=== PATIENT | male | born 1960 ===

== ENCOUNTER 2017-10-11 08:41 | Observation (INO) | payer BC ==
[2017-10-11] MEDS ORDERED: DEXAMETHASONE 10 MG/ML VIAL IVP ONE (08:49)
[2017-10-11] MEDS ORDERED: ceFAZolin 2 GM/DEXTROSE 100 ML IV ONE (08:49)
[2017-10-11] MEDS ORDERED: LIDOCAINE 1% 2 ML INJ ID PRN (08:51)
[2017-10-11] MEDS ORDERED: LR 1,000 ML IV ONE (08:51)
[2017-10-11] MEDS ORDERED: BUPIVACAINE 0.25% 30 ML SDV ONE (09:05)
[2017-10-11] MEDS ORDERED: EPINEPHrine 1 MG/ML INJ ONE (09:05)
[2017-10-11] MEDS ORDERED: LIDOCAINE 1% 300 MG/30 ML SDV ONE (09:05)
[2017-10-11] MEDS ORDERED: BACITRACIN ZINC 14.2 GM OINTTUBE TP ONE (09:05)
[2017-10-11] MEDS ORDERED: LIDO/EPI 1% **for epidural** 30 ML SDV ONE (09:06)
--- NOTE | 2017-10-11 09:10 | CPEKG ---
Heart Rate: 72 RR Interval: 833 P-R Interval: 156 QRSD Interval: 104 QT Interval: 396 QTC Interval: 434 P Griffith: 30 QRS Griffith: 49 T Wave Griffith: 112 EKG Severity - ABNORMAL ECG - EKG Impression: SINUS RHYTHM EKG Impression: ABNORMAL T, CONSIDER ISCHEMIA, LATERAL LEADS EKG Impression: MINIMAL ST ELEVATION, ANTERIOR LEADS Electronically Signed By: Lenin Matt 11-Oct-2017 16:00:37
[2017-10-11 09:38] LABS: PLATELET COUNT 209 10^3/uL (150-400)
--- NOTE | 2017-10-11 09:43 | PDANEPAE ---
ANE Past Medical History - Cardiovascular History Hx Hypertension: No Hx Arrhythmias: No Hx Chest Pain: No Hx Coronary Artery / Peripheral Vascular Disease: Yes Hx CHF / Valvular Disease: No Hx Palpitations: No - Pulmonary History Hx COPD: No Hx Asthma/Reactive Airway Disease: No Hx Recent Upper Respiratory Infection: No Hx Oxygen in Use at Home: No Hx Sleep Apnea: No ANE Review of Systems Review of Systems: ANE Patient History - Allergies Allergies/Adverse Reactions: No Known Allergies Allergy (Verified 10/11/17 09:08) - Home Medications Home Medications: Aspirin 81mg (*) 10/11/17 [Last Taken 10/08/17] Crestor 20mg (*) 10/11/17 [Last Taken 10/10/17] Fish Oil Lejunior-3 Softgel 10/11/17 [Last Taken 10/10/17] - NPO status NPO Since - Liquids (Date): 10/11/17 NPO Since - Liquids (Time): 01:00 NPO Since - Solids (Date): 10/11/17 NPO Since - Solids (Time): 01:00 ANE Labs/Vital Signs - Labs Result Diagrams: 10/11/17 09:25 - Vital Signs Blood Pressure: 148/102 Heart Rate: 67 Respiratory Rate: 15 O2 Sat (%): 94 Height: 175.26 cm Weight: 77.564 kg ANE Physical Exam - Airway Neck exam: FROM Mallampati Score: Class 2 Mouth exam: normal dental/mouth exam - Pulmonary Pulmonary: no respiratory distress - Cardiovascular Cardiovascular: regular rate and rhythym - ASA Status ASA Status: II ANE Anesthesia Plan Anesthesia Plan: general endotracheal anesthesia
--- NOTE | 2017-10-11 10:01 | PDHPUP ---
History & Physical Update H&P update statement: This history and physical update is based on an assessment of the patient which was completed after admission or registration (within 24 hours), but prior to the surgery/procedure. H&P update: H&P reviewed & patient examined, no change in patient's condition since H&P completed
[2017-10-11] MEDS ORDERED: fentaNYL 250 MCG/5 ML INJ ONE (10:29)
[2017-10-11] MEDS ORDERED: PROPOFOL/EMULSION 500 MG/50 ML BOTTLE IV ONE (10:29)
[2017-10-11] MEDS ORDERED: REMIFENTANIL HCL 1 MG VIAL ONE (10:56)
[2017-10-11] MEDS ORDERED: DEXAMETHASONE 4 MG/ML VIAL ONE (11:11)
[2017-10-11] MEDS ORDERED: ONDANSETRON 4 MG/2 ML VIAL ONE (11:11)
[2017-10-11] MEDS ORDERED: fentaNYL 100 MCG/2 ML INJ IVP PRN (13:38)
[2017-10-11] MEDS ORDERED: NALOXONE HCL 0.4 MG/ML INJ IVP PRN (13:38)
[2017-10-11] MEDS ORDERED: LR 500 ML IV PRN (13:38)
[2017-10-11] MEDS ORDERED: PROMETHAZINE HCL 25 MG/ML INJ IVP PRN (13:38)
[2017-10-11] MEDS: LABETALOL HCL 5 MG/ML 20 ML MDV IVP PRN ×4 (13:38→14:04)
--- NOTE | 2017-10-11 13:39 | POSTANESTH ---
Post Anesthetic Evaluation Cardiovascular Status: Normal, Stable Respiratory Status: Normal, Stable Level of Consciousness/Mental Status: Can Participate in Eval Pain Control: Adequate, Prn Tx Ordered Nausea/Vomiting Control: Adequate, Prn Tx Ordered Complications Possibly Related to Anesthesia: None Noted
[2017-10-11] MEDS ORDERED: OXYCODONE/APAP 5/325 TAB PO PRN (13:43)
[2017-10-11] MEDS ORDERED: ONDANSETRON 4 MG/2 ML VIAL IVP PRN (14:22)
[2017-10-11] MEDS ORDERED: D5W 1/2 NS 1,000 ML IV SCH ×2 (14:30→17:45)
--- NOTE | 2017-10-11 14:32 | POSTOPPROG ---
Post Op Note Date of Operation: 10/11/17 Surgeon: Earl Rodriguez [employer] Supervisor: Emily Preston Anesthesiologist: Samuel Mukherjee Pre-op Diagnosis: Left neck Mass Post-op Diagnosis: Left neck metastatic squamous cell carcinoma Indication: Left neck mass Procedure: Left Neck modified ND, DL with biopsies, Cervical esophagoscopy Findings: 4x3.5x2 cm left lev 2B mass, firm area left base of tongue Inf/Abcess present in the surg proc area at time of surgery?: No Depth: Organ Space EBL: 50-100 Complications: none Drains: Joe Sanders Specimen(s): 1. left neck mass 2. Left neck level 2b and 3 tissue 3. Left base of tongue biopsies 4. Left tonsil fossa biopsies
--- NOTE | 2017-10-11 16:45 | GOP ---
[f rep st] OPERATIVE REPORT DATE OF OPERATION: 10/11/2017 SURGEON: Earl Rodriguez MD PATTERN KEEPER: Fermin Lopez MD, and Emily Parada PA-C. ANESTHESIA: General endotracheal anesthesia. PREOPERATIVE DIAGNOSIS: Left neck mass. POSTOPERATIVE DIAGNOSIS: Left neck metastatic squamous cell carcinoma. PROCEDURE PERFORMED: 1. Left modified neck dissection. 2. Direct laryngoscopy with biopsies. 3. Cervical esophagoscopy. FINDINGS: Frozen section evaluation of the left neck mass was positive for squamous cell carcinoma. The mass itself measured 4 x 3.5 x 2 cm in size. There was a single likely positive node directly a djacent to it. No other adenopathy was noted. During the direct laryngoscopy, there was a slightly firm area of the left base of tongue that was noted on palpation and this was biopsied. SPECIMENS: 1. Left level 2B neck mass. 2. Left neck lymphatic and soft tissue neck dissection of levels 2B and 3. 3. Left base of tongue biopsies. 1. Left tonsil fossa biopsies. 4. ESTIMATED BLOOD LOSS: Less than 100 cc. INDICATIONS: The patient is a 56-year-old man with a left neck mass. No other symptoms were noted. A needle biopsy showed some atypical cells and necrosis. He presents for surgery for definitive nyla gnosis. DESCRIPTION OF PROCEDURE: Patient was taken the OR, positively identified, placed on monitors and ge neral anesthesia was induced. The table was then turned and he was prepped and draped in normal ster ile fashion. Incision was marked overlying the left anterior neck skin crease and infiltrated with 4 cc of 0.25% Marcaine with 1:100,000 epinephrine. The patient was then prepped and draped. The skin was incised in normal fashion, dissecting down through the platysma. Superior and inferior subplatysmal flaps were then raised and secured. Dissection was carried along the anterior border of sternocleidomastoid muscle. A superior incision was made below the tail of parotid gland and along the inferior border of the submandibular gland. Dissection continued around the mass itself, shellin g it out from the surrounding tissue. The internal jugular vein and carotid artery were identified a nd preserved. The hypoglossal nerve was identified and preserved. The accessory nerve was identifie d and preserved. Vessels were tied off and cauterized as needed to maintain hemostasis, and once the mass is excised along with the adjacent smaller pale-appearing lymph node, attention was turned to t he rest of the neck. The frozen section came back positive. The decision was made to dissect the inferior aspect of level 2B and level 3. Dissection was swept along the anterior border of the sternocleidomastoid muscle an d jugular vein extending down to the omohyoid, which was retracted inferiorly. Some of the soft tiss ue below this was swept up and the lymphatic tissue was transected following the angle of the omohyoi d muscle and then sweeping this off the neck anteriorly. This was sent for pathologic evaluation. The wound was irrigated with sterile saline solution. Oozing vessels were tied off or cauterized as needed. A 10-Arabic drain was placed through a separate stab incision. The wound was then closed wi th interrupted 3-0 Vicryl, 4-0 Monocryl, and 5-0 Prolene. A sterile dressing was placed following cl osure. Prior to closure, a 10-Arabic suction drain had been placed. Attention was now turned to the direct laryngoscopy. A protective guard was placed over the upper in cisors. I did note that there was some cracking of the left upper incisor, tooth #26. The laryngosc ope was then used to examine the oral cavity and oropharynx, no abnormalities were noted of the tonsi llar fossa. Preoperatively, I thought there was a little bit of fullness in the left posterior tonsi llar pillar, but this is not appreciated today. Biopsies were taken of the area anyhow. I then exam ined the hypopharynx and larynx, both visually and on palpation. There was some firmness to the left base of tongue and multiple biopsies were taken in this area. The cervical esophagoscope was then passed down beyond the upper esophageal sphincter, passed approxi mately 10 cm beyond the upper esophageal sphincter and slowly removed, and no abnormalities were seen . At this point, the dental guard was removed. The patient was turned back over to Anesthesia. The Ancef was discontinued. He taken to postop care unit in good condition having tolerated the procedu re well. COMPLICATIONS: None. Copy requested to: Naida Simeon MD /[id number]/MODL
[2017-10-11] MEDS ORDERED: ceFAZolin 2 GM in NS 100 ML IV ONE (18:45)
[2017-10-12 08:43] VITALS: BP 138/91
--- NOTE | 2017-10-12 12:41 | ASDISCHSUM ---
Discharge Information Plan Status:Home with No Needs Medically Cleared to Leave:10/12/2017 Discharge Date:10/12/2017 CM D/C Disposition:Home, Routine, Self-Care ADT D/C Disposition:Home, Routine, Self-Care Projected Discharge Date:10/12/2017 Transportation at D/C:Family Discharge Delay Reason: Follow-Up Date:10/12/2017 Discharge Slot: Final Diagnosis: Placement Information Patient Contact Information Contact Name:YASMANY Relationship: Address: Work Phone: City: [facility] Phone: State/[employer] Code: Email: Financial Information Financial Class:HMO and PPO Plans Primary Plan Desc:[employer] Primary Plan Number:[id number] Secondary Plan Desc: Secondary Plan Number: Assessment Information LACE LACE Length of stay for Answers: Less than 1 day current admission Acuity / Level of Answers: No Care: Did the patient have an inpatient admission? Comorbidities - select Answers: Any tumor (including all that apply lymphoma or leukemia) Other Notes: cardiac stents # of Emergency department Answers: 0 visits in the last 6 months Score: 3 Date Signed: 10/12/2017 12:39 PM Electronically Signed By:ALEXUS Callaway Intervention Information
--- NOTE | 2017-10-12 12:44 | ASMTCMCOM ---
CM Note CM Note Notes: Pt is s/p a laryngoscopy with biopsies for met squamous cell CA. He lives with his in [place]. ENT is following. CM will follow for any d/c needs. Date Signed: 10/12/2017 12:43 PM Electronically Signed By:ALEXUS Callaway
== END 2017-10-12 12:59 | disposition home or self-care (01) ==
LOC: F3E 08:41
PROVIDERS: ADMIT Otolaryngology; ATTEND Otolaryngology
PROC: 0JB50ZX Excision of Left Neck Subcutaneous Tissue and Fascia, Open Approach, Diagnostic (ICD-10-PCS; principal; 2017-10-11 09:45)
PROC: 07B20ZX Excision of Left Neck Lymphatic, Open Approach, Diagnostic (ICD-10-PCS; principal; 2017-10-11 09:45)
PROC: 0DJ08ZZ Inspection of Upper Intestinal Tract, Via Natural or Artificial Opening Endoscopic (ICD-10-PCS; principal; 2017-10-11 09:45)
PROC: 0CBPXZX Excision of Tonsils, External Approach, Diagnostic (ICD-10-PCS; principal; 2017-10-11 09:45)
PROC: 0CB7XZX Excision of Tongue, External Approach, Diagnostic (ICD-10-PCS; principal; 2017-10-11 09:45)
DX: C44.42 Squamous cell carcinoma of skin of scalp and neck (principal); I25.10 Atherosclerotic heart disease of native coronary artery without angina pectoris; Z95.5 Presence of coronary angioplasty implant and graft
CPT/HCPCS: 21550; 31535; 43191; 93005; G0378; J0171; J0690; J1100; J2405; J2704; J3010

== ENCOUNTER → 2017-11-05 | Outpatient (CLI) | payer BC | LOC: FIMAGING 15:35 | PROVIDERS: ATTEND Internal Medicine Hematology & Oncology | DX: Z01.818 Encounter for other preprocedural examination (principal); C10.9 Malignant neoplasm of oropharynx, unspecified ==

== ENCOUNTER 2017-11-16 07:24 | Observation (INO) | payer BC ==
[2017-11-16] MEDS ORDERED: FLUMAZENIL 0.5 MG/5 ML MDV IVP PRN (09:16)
[2017-11-16] MEDS ORDERED: ceFAZolin 2 GM/DEXTROSE 100 ML IV ONE (09:16)
[2017-11-16] MEDS ORDERED: MEPERIDINE 25 MG/ML SYR IVP PRN (09:16)
[2017-11-16] MEDS ORDERED: ALTEPLASE 2 MG VIAL IVP PRN (09:16)
[2017-11-16] MEDS ORDERED: fentaNYL 100 MCG/2 ML INJ IVP PRN (09:16)
[2017-11-16] MEDS ORDERED: GLUCAGON HCL 1 MG VIAL IVP PRN (09:16)
[2017-11-16] MEDS ORDERED: PROTAMINE SULFATE 50 MG/5 ML VIAL IVP PRN (09:16)
[2017-11-16] MEDS ORDERED: NALOXONE HCL 0.4 MG/ML INJ IVP PRN (09:16)
[2017-11-16] MEDS ORDERED: HEPARIN 10,000 UNIT/10 ML MDV (1,000 UNIT/ML) IVP PRN (09:16)
[2017-11-16] MEDS ORDERED: MIDAZOLAM 2 MG/2 ML VIAL IVP PRN (09:16)
[2017-11-16] MEDS ORDERED: NS 1,000 ML IV SCH (09:30)
[2017-11-16] MEDS ORDERED: MIDAZOLAM 2 MG/2 ML VIAL ONE ×2 (09:35)
[2017-11-16] MEDS ORDERED: fentaNYL 100 MCG/2 ML INJ ONE ×2 (09:35→17:30)
[2017-11-16] MEDS ORDERED: NALOXONE HCL 0.4 MG/ML INJ ONE (09:35)
[2017-11-16] MEDS ORDERED: CEFAZOLIN 2 GM/DEXTROSE/100 ML BAG IV ONE (09:35)
[2017-11-16] MEDS ORDERED: FLUMAZENIL 0.5 MG/5 ML MDV IVP ONE (09:35)
--- NOTE | 2017-11-16 09:47 | PDGENHP ---
History and Physical - History of Present Illness History Information - Allergies/Home Medication List Allergies/Adverse Reactions: No Known Allergies Allergy (Verified 10/11/17 09:08) Home Medications: Rosuvastatin Calcium [Crestor 20mg (*)] 20 mg PO DAILY 10/11/17 [Last Taken ] Aspirin 81mg (*) 162 mg PO DAILY 11/15/17 [Last Taken Unknown] Fish Oil 1,000 mg Softgel 3,000 mg PO DAILY 11/15/17 [Last Taken Unknown] - Social History Smoking Status: Never smoked Review of Systems Review of Systems: Physical Exam Physical Exam: Lab Data & Imaging Review 11/16/17 08:45 Hct 46.1 % (40.0-51.0) 11/16/17 08:45 Plt Count 201 10^3/uL (150-400) 11/16/17 08:45 PT REJ 11/16/17 08:45 INR TNP 11/16/17 08:45 APTT TNP 11/16/17 08:45
--- NOTE | 2017-11-16 09:56 | PDRADPRE ---
Radiology History & Physical Indication for procedure: other (Radiation induced dysphagia) Home medications: Rosuvastatin Calcium [Crestor 20mg (*)] 20 mg PO DAILY 10/11/17 [Last Taken ] Aspirin 81mg (*) 162 mg PO DAILY 11/15/17 [Last Taken Unknown] Fish Oil 1,000 mg Softgel 3,000 mg PO DAILY 11/15/17 [Last Taken Unknown] Allergies/Adverse Reactions: No Known Allergies Allergy (Verified 10/11/17 09:08) Mental status: A&Ox3 Heart exam: regular rate and rhythm Lungs exam: clear to auscultation Mallampati Score: Class 2
[2017-11-16 09:57] LABS: INR 0.96 (0.83-1.16)
--- NOTE | 2017-11-16 09:57 | PDPROPOC ---
Sedation Plan of Care Sedation Plan of Care: vital signs stable, mental status noted, patient educated of risks, benefits, alternatives, patient can tolerate sedation ASA Classification: ASA 1 Planned drugs: fentanyl, midazolam Mallampati Score: Class 2 Mallampati Reference Image: Patient passed 3-3-2 rule?: Yes
[2017-11-16] MEDS ORDERED: LIDOCAINE 2% JELLY 20 ML (UROJECT) ONE (10:39)
[2017-11-16] MEDS ORDERED: GLUCAGON HCL 1 MG VIAL ONE (10:44)
[2017-11-16] MEDS ORDERED: ONDANSETRON 4 MG/2 ML VIAL IVP PRN ×2 (11:20→18:15)
--- NOTE | 2017-11-16 11:20 | PDRADPN ---
Radiology Procedure Note Date of Procedure: 11/16/17 Radiologist: Nima Nunez Anesthesia: IV Sedation Pre-op Diagnosis: Dysphagia Post-op Diagnosis: Dysphagia Indication: Dysphagia Procedure: Gastrostomy tube placement Finding(s): 20 Fr G tube placed into stomach without complication Inf/Abcess present in the surg proc area at time of surgery?: No
[2017-11-16] MEDS ORDERED: GLUCAGON HCL IVP ONE (11:30)
[2017-11-16] MEDS ORDERED: GLUCAGON HCL 1 MG VIAL IVP ONE (11:45)
--- NOTE | 2017-11-16 13:11 | CPEKG ---
Heart Rate: 55 RR Interval: 1091 P-R Interval: 160 QRSD Interval: 102 QT Interval: 420 QTC Interval: 402 P Tig[place]: 31 QRS Tig[place]: 57 T Wave [place]: 42 EKG Severity - ABNORMAL ECG - EKG Impression: SINUS RHYTHM EKG Impression: ABNORMAL T, CONSIDER ISCHEMIA, LATERAL LEADS Electronically Signed By: Benoit Magaña 17-Nov-2017 11:24:31
[2017-11-16] MEDS ORDERED: IOPAMIDOL (ISOVUE-300) 100 ML BTL ONE (13:17)
[2017-11-16] MEDS ORDERED: LIDOCAINE 1% 300 MG/30 ML SDV ONE (13:17)
[2017-11-16 13:49] LABS: PLATELET COUNT 203 10^3/uL (150-400)
[2017-11-16 14:05] LABS: CREATINE KINASE 28 IU/L (0-224)
[2017-11-16] MEDS ORDERED: D5W 1/2 NS 1,000 ML IV ONE (15:00)
[2017-11-16] MEDS: ACETAMINOPHEN 325 MG TAB PO PRN ×2 (15:01→16:25)
--- NOTE | 2017-11-16 15:44 | PDCONSULT ---
Charge Hand Note: IR asked for cardiology input on patient, known to [facility] (Dr. Mara Sanchez), who had a syncopal event post gastric tube placement earlier today. Patient is a 57 y/o male with history of CAD s/p PCI (RCA, 2009), with HTN and HLP, with recent diagnosis of head and neck cancer (ongoing radiation therapy) s /p G tube placement, who was attempting to leave the hospital, and had a near syncopal event. Seizure like activity was noted by nursing staff. Patient was brought back to the post op holding area, and cardiology evaluation was requested. Upon seeing the patient, no cardiovascular complaints were voiced. No chest pains or pressure. No PND or orthopnea. Mild tenderness to the Gastric tube site. was present with the patient in the room. Recent follow up with cardiology (Dr. Mara Sanchez) on 10-30-17 with CMP, lipids, and ECG. No plans for cardiovascular testing (echo, stress testing, holter) given a lack of symptoms. Outpatient notes were reviewed after visit with patient. Cardiology questioning if sedation might have played some part in the event that was noted (no monitor was in place, and shortly after the event, the patient was feeling "...back to normal...". Recommendations for the patient to remain on monitored bed for the next few hours. IV fluids (0.9 NS) was started, and would finish this bag. Ambulation of the patient in the room prior to discharge to ensure that blood pressure/ heart rate are without issues. Consider follow up with cardiology in the outpatient setting (the last stress testing appears to be in 2009). Granted, no cardiovascular symptoms have been noted (in the outpatient setting, or event today with the event that was noted) , but there is a CAD/PCI history for this patient. Regular exercise (yesterday ) has not provoked any limitations. Labs (cardiac biomarkers) were sent when this event started, and recommendations to ensure that a follow up assessment of troponin is drawn (to give two points in the graph).
[2017-11-16] MEDS ORDERED: fentaNYL 100 MCG/2 ML INJ IVP ONE (17:30)
[2017-11-16] MEDS ORDERED: fentaNYL 100 MCG/2 ML INJ IV ONE (17:30)
[2017-11-16] MEDS ORDERED: ACETAMINOPHEN 325 MG TAB PO PRN (18:15)
[2017-11-16] MEDS ORDERED: HYDROmorphONE/DILAUDID 1 MG/ML INJ IVP PRN (18:15)
[2017-11-16] MEDS ORDERED: ONDANSETRON DISINTEGRATING 4 MG TAB PO PRN (18:15)
--- NOTE | 2017-11-16 19:20 | GHP ---
[f rep st] HISTORY AND PHYSICAL DATE OF ADMISSION: 11/16/2017 HISTORY OF PRESENT ILLNESS: The patient is a 57-year-old gentleman with a history of coronary artery disease with remote stent, as well as recently diagnosed squamous cell cancer of the head and neck, who has had a G-tube placed today. He has completed a week of chemotherapy and radiation. He felt w ell prior to the procedure, although a little bit banged up from chemotherapy. Following the procedur e, he got up to leave, and he became lightheaded, dizzy, and diaphoretic, and bradycardic into the 40 s. It is possible he lost consciousness for a second. He was not on the monitor when it happened. When they put him back on the monitor, his blood pressure was elevated. His pulse was bradycardic. Did not have chest pain. He has not had fever or chills. He had been n.p.o. past midnight. The same thing, when they got him up to go again a couple hours later, again he felt lightheaded and dizzy. I am asked to see him now. When I speak with the patient he looks well. He is conversant. Denies chest pain or any other anginal-type symptoms. He does not take a beta mina or other manfred agent. No fever, chills, cough, sputum, nausea, vomiting, diarrhea. REVIEW OF SYSTEMS: Complete 10-point review of systems was conducted and negative except as noted in the HPI. PAST MEDICAL HISTORY: 1. Coronary artery disease. He had a stent in distal artery about 8 years ago with no recurrence of symptoms. 2. Hypercholesterolemia. 3. Squamous cell cancer of the head and neck. ALLERGIES: No known drug allergies. HOME MEDICATIONS: Aspirin, fish oil, on rosuvastatin. He has also recently taken chemotherapy and r adiation this week. Minimal alcohol. No tobacco. Works as an sewer repairer. Lives in [facility]. FAMILY HISTORY: Reviewed and unremarkable. PHYSICAL EXAM: VITAL SIGNS: Afebrile. Pulse in the 60s. Blood pressure 139/92. Breathing 15 time s a minute. 99% on room air. GENERAL: No acute distress. Sclerae anicteric. Oropharynx clear. M ucous membranes are moist. NECK: Supple. No lymphadenopathy or JVD. LUNGS: Clear to auscultation bilaterally. HEART: S1, S2. Not bradycardic. There is no murmur. ABDOMEN: Soft, nontender, non distended. EXTREMITIES: Lower extremities without edema. Calves are nontender. SKIN: Without lynne h. NEUROLOGIC: Nonfocal. LABS: Sodium 134, potassium 4.2, chloride 102, bicarb 26, BUN 17, creatinine 0.9, glucose 96. CK 28 . Troponin 0.015 and 0.014. A few hours later, INR is normal. White count 9, hematocrit 44, platele ts are 203,000. EKG interpreted by me shows sinus bradycardia at 55 with normal axis and intervals. Compared with the prior EKG of a few weeks ago, the morphology is the same, but the rate is slower. I have discussed the case with ASSESSMENT/PLAN: 57-year-old gentleman with vasovagal episode following gastrostomy tube placement. 1. Syncope. This is almost certainly a vasovagal episode on the basis of the symptomatology and set ting. We will follow him on a heart monitor overnight. This does not represent acute coronary syndr ome. 2. Hyponatremia. This is mild, likely secondary to being nothing by mouth. We will give him IV flu ids and allow him to eat. 3. Head and neck cancer. He is currently enrolled in therapy. He had a prophylactic gastrostomy tu be placed. This is common in these patients. 4. History of coronary artery disease. Patient does have a history of a small stent placed. We fern l follow him. Again, I do not think we need to continue to cycle his enzymes. DISPOSITION: Observation status, PCU. Full code. /[id number]/MODL
[2017-11-17] MEDS ORDERED: NS 500 ML IV ONE (05:32)
[2017-11-17 11:29] VITALS: BP 141/86
--- NOTE | 2017-11-17 11:35 | SOAPPROG ---
SOAP Progress Note Assessment/Plan: Assessment: POD#1 s/p G tube placement admitted for observation for vasovagal response. Negative cardiac workup Plan: Ok to discharge to home today from IR perspective. 11/17/17 11:32 Subjective: Mild pain at G tube insertion site, denies severe pain, nausea, or vomiting. Tolerating PO intake well. Objective: Vital Signs Temp Pulse Resp BP Pulse Ox 36.7 C 73 14 141/86 H 94 11/17/17 11:27 11/17/17 11:27 11/17/17 11:27 11/17/17 11:27 11/17/17 11:27 Laboratory Results 11/16/17 13:35 11/17/17 09:42 11/16/17 11/17/17 11/18/17 05:59 05:59 05:59 Intake Total 3310 Output Total 0 Balance 3310 PT 13.0 SEC (12.0-15.0) 11/16/17 09:15 INR 0.96 (0.83-1.16) 11/16/17 09:15 Abd: NT, ND, no peritoneal signs. Drssing CDI ICD10 Worksheet Patient Problems: Problems Problem Status Onset Neck mass Acute
--- NOTE | 2017-11-17 13:18 | GDS ---
[f rep st] DISCHARGE SUMMARY ALL DIAGNOSES: 1. Syncope. 2. Hyponatremia. 3. Head and neck squamous cell cancer. 4. History of coronary artery disease, status post distant stent. HOSPITAL COURSE: This is a 57-year-old man with a recent diagnosis of neck squamous cell cancer, fol lowed by Dr. Ponce. He was just started on radiation about 1 week ago. He was in Interventional Rad iology to have a PEG placed in case he would need it during the course of treatment. After this even t, he had a syncopal episode where he was hypertensive and bradycardic. He was seen by Cardiology, w ho did not feel as though this was acute coronary syndrome. His troponins have been negative x2. Te lemetry showed no events. EKG showed T-wave inversions in the lateral leads, though this is unchange d from his prior EKG. I think this was likely a vasovagal mediated event. He feels completely back to normal and would like to be discharged. Notably, he is still able to tolerate p.o. He may eat un til he gets severe enough mucositis that prevents him from taking p.o. As above, does have a prophyl actic PEG in place. For his hyponatremia, I think that this is likely due to his being n.p.o. prior to this procedure and then receiving 2 L of D5 1/2 normal saline. Urine studies show a normal sodium with low osms, indic ating that he has a low level of ADH present right now, without any significant hypovolemia. This wi ll be followed in [address] Ponce's office prior to his next round of chemotherapy. FOLLOWUP: Dr. Ponce for ongoing management of his head and neck cancer, as well as follow up on his hyponatremia. /[id number]/MODL
--- NOTE | 2017-11-17 15:52 | ASMTLACE ---
LACE Length of stay for Answers: Less than 1 day current admission Acuity / Level of Answers: No Care: Did the patient have an inpatient admission? Comorbidities - select Answers: Coronary Artery Disease all that apply Other Notes: PEG # of Emergency department Answers: 0 visits in the last 6 months Score: 3 Date Signed: 11/17/2017 03:51 PM Electronically Signed By:ALEXUS Callaway
--- NOTE | 2017-11-17 15:55 | ASDISCHSUM ---
Discharge Information Plan Status:Home with No Needs Medically Cleared to Leave:11/17/2017 Discharge Date:11/17/2017 02:00 PM CM D/C Disposition:Home, Routine, Self-Care ADT D/C Disposition:Home, Routine, Self-Care Projected Discharge Date:11/17/2017 02:00 PM Transportation at D/C:Family Discharge Delay Reason: Follow-Up Date:11/17/2017 02:00 PM Discharge Slot: Final Diagnosis: Placement Information Patient Contact Information Contact Name:YASMANY Relationship: Address:[address] [place] Work Phone: City:[facility] Phone: State/Zip Code:[place] [address] Email: Financial Information Financial Class:HMO and PPO Plans Primary Plan Desc:[employer] [facility] Primary Plan Number:[id number] Secondary Plan Desc: Secondary Plan Number: Assessment Information LACE LACE Length of stay for Answers: Less than 1 day current admission Acuity / Level of Answers: No Care: Did the patient have an inpatient admission? Comorbidities - select Answers: Coronary Artery Disease all that apply Other Notes: PEG # of Emergency department Answers: 0 visits in the last 6 months Score: 3 Date Signed: 11/17/2017 03:51 PM Electronically Signed By:ALEXUS Callaway Case Management Discharge Plan Note Case Management Discharge Discharge Order Complete? Answers: Yes Patient to Obtain Answers: via Family Medications Transportation Arranged Answers: Family/Friends Discharge Comments Notes: Pt was admitted with syncope. He has a hx of CAD and recent dx of squamous cell CA of the head and neck. He has completed 1 week of chemo and radiation. He is s/p PEG placement for the dysphagia. He is discharging home today with no CM needs. Date Signed: 11/17/2017 03:53 PM Electronically Signed By:ALEXUS Callaway Intervention Information
== END 2017-11-17 14:00 | disposition home or self-care (01) ==
LOC: FIMAGING 07:24 → F2W 17:28
PROVIDERS: ADMIT Internal Medicine; ATTEND Student in an Organized Health Care Education/Training Program
PROC: 0DH63UZ Insertion of Feeding Device into Stomach, Percutaneous Approach (ICD-10-PCS; principal; 2017-11-16 11:20)
PROC: BD15YZZ Fluoroscopy of Upper GI using Other Contrast (ICD-10-PCS; principal; 2017-11-16 11:20)
DX: R55 Syncope and collapse (principal); E87.1 Hypo-osmolality and hyponatremia; R13.10 Dysphagia, unspecified; Y84.2 Radiological procedure and radiotherapy as the cause of abnormal reaction of the patient, or of later complication, without mention of misadventure at the time of the procedure; C10.9 Malignant neoplasm of oropharynx, unspecified; I25.10 Atherosclerotic heart disease of native coronary artery without angina pectoris; E78.5 Hyperlipidemia, unspecified; Z79.82 Long term (current) use of aspirin; I10 Essential (primary) hypertension; Z92.21 Personal history of antineoplastic chemotherapy; Z92.3 Personal history of irradiation; Z95.5 Presence of coronary angioplasty implant and graft
CPT/HCPCS: 49440; 93005; 99152; 99153; C1729; C1769; G0378; J0690; J1170; J1610; J2250; J2310; J3010; Q9967